=== PATIENT | male | born 1980 | race Two or more races ===

== ENCOUNTER 2016-04-01 21:54 | Emergency (ER) | payer MEDICAID, OTHER ==
[~2016-04-01] VITALS: Ht 177.8 cm; Wt 127.0 kg
[2016-04-01 22:13] VITALS: BP 130/92
== END 2016-04-02 01:42 | disposition left against medical advice (07) ==
LOC: ER 22:18
DX: R10.9 Unspecified abdominal pain (principal); Z53.21 Procedure and treatment not carried out due to patient leaving prior to being seen by health care provider

== ENCOUNTER 2016-04-06 12:23 | Emergency (ER) | payer MEDICAID ==
[~2016-04-06] VITALS: Ht 170.2 cm; Wt 127.0 kg
[2016-04-06 12:55] VITALS: BP 137/87
== END 2016-04-06 13:15 | disposition home or self-care (01) ==
LOC: ER 12:23
DX: T88.7XXA Unspecified adverse effect of drug or medicament, initial encounter (principal); F52.0 Hypoactive sexual desire disorder; F31.9 Bipolar disorder, unspecified; F20.9 Schizophrenia, unspecified; F41.9 Anxiety disorder, unspecified; X58.XXXA Exposure to other specified factors, initial encounter; Y93.89 Activity, other specified; Y99.8 Other external cause status; Y92.89 Other specified places as the place of occurrence of the external cause

== ENCOUNTER 2017-02-20 20:08 | Emergency (ER) | payer MEDICAID ==
[~2017-02-20] VITALS: Ht 172.7 cm; Wt 139.7 kg
[2017-02-20 20:26] VITALS: BP 146/86
[2017-02-20 21:04] LABS: Basophils # (auto) 0.1 uL; Eosinophils # (auto) 0.1 uL; Eosinophils % (auto) 0.7 % (0.0-7.0); Hematocrit 44.5 % (41.0-53.0); Hemoglobin 14.9 g/dL (13.5-17.5); Lymphocytes # (auto) 3.5 uL; Lymphocytes % (auto) 27.9 % (10.0-50.0); Mean Corpuscular Hemoglobin 27.8 pg (28.0-32.0); Mean Corpuscular Hgb Conc. 33.5 g/dL (32.0-36.0); Mean Corpuscular Volume 83.1 fL (80.0-100.0); Mean Platelet Volume 7.2 fL (6.9-10.8); Monocytes # (auto) 1.2 uL; Monocytes % (auto) 9.4 % (0.0-12.0); Neutrophils # (auto) 7.6 uL; Nucleated Red Blood Cells % 0.1 %; Platelet Count (auto) 354 10^3/uL (140-450); Red Cell Distribution Width 14.2 % (11.8-14.3); White Blood Cell 12.4 10^3/uL (4.4-10.8)
[2017-02-20 21:38] LABS: Albumin 3.8 g/dL (3.4-5.0); Alkaline Phosphatase 88 U/L (45-117); Anion Gap 6 (5-15); Aspartate Aminotransferase 45 U/L (15-37); BUN/Creatinine Ratio 18.8; Bilirubin, Total 0.5 mg/dL (0.2-1.0); Blood Urea Nitrogen 18 mg/dL (7-18); Calcium 8.9 mg/dL (8.5-10.1); Carbon Dioxide 28 mmol/L (21-32); Chloride 103 mmol/L (98-107); GFR African American 113 mL/min; GFR Non-African American 94 mL/min; Glucose 101 mg/dL (74-106); Magnesium 2.2 mg/dL (1.6-2.6); Potassium 3.5 mmol/L (3.5-5.1); Sodium 137 mmol/L (136-145); Total Protein 8.6 g/dL (6.4-8.2)
== END 2017-02-20 23:35 | disposition left against medical advice (07) ==
LOC: ER 20:08
DX: R42 Dizziness and giddiness (principal); Z53.21 Procedure and treatment not carried out due to patient leaving prior to being seen by health care provider
CPT/HCPCS: 36415; 80053; 83735; 84484; 85025; 93005

== ENCOUNTER → 2019-05-25 | Emergency (ER) | payer MEDICAID ==
[~2019-05-25] VITALS: Ht 172.7 cm; Wt 131.5 kg
[~2019-05-25] MED LIST: LORazepam 2MG/ML-1ML VIAL IV ONE; SODIUM CHLORIDE 0.9% 1,000 ML IV ONE
[2019-05-25 15:00] VITALS: BP 121/67
[2019-05-25 15:05] LABS: Basophils # (auto) 0.1 10 ^3/uL (0-0.2); Eosinophils # (auto) 0.2 10 ^3/uL (0-0.8); Eosinophils % (auto) 1.6 % (0.0-7.0); Monocytes # (auto) 1.1 10 ^3/uL (0-1.3)
[2019-05-25 15:07] LABS: Basophils % (auto) 0.8 % (0.0-2.0); Hemoglobin 13.1 g/dL (13.5-17.5); Lymphocytes % (auto) 19.6 % (10.0-50.0); Mean Corpuscular Hemoglobin 26.5 pg (28.0-32.0); Mean Corpuscular Hgb Conc. 33.6 g/dL (32.0-36.0); Mean Corpuscular Volume 78.7 fL (80.0-100.0); Monocytes % (auto) 11.4 % (0.0-12.0); Neutrophils # (auto) 6.7 10 ^3/uL (1.6-8.6); Neutrophils % (auto) 66.6 % (37.0-80.0); Platelet Count (auto) 369 10^3/uL (140-450); Red Blood Cells 4.96 10^6/uL (4.5-5.90); Red Cell Distribution Width 14.9 % (11.8-14.3); White Blood Cell 10.1 10^3/uL (4.4-10.8)
[2019-05-25 15:18] LABS: Albumin 3.4 g/dL (3.4-5.0); BUN/Creatinine Ratio 14.1; Calcium 8.4 mg/dL (8.5-10.1); Potassium 3.8 mmol/L (3.5-5.1)
[2019-05-25 15:21] LABS: Bilirubin, Total 0.3 mg/dL (0.2-1.0); Total Protein 7.5 g/dL (6.4-8.2)
[2019-05-25 15:39] LABS: Urine Bacteria NONE SEEN /hpf (None Seen); Urine Blood Negative /uL (Negative); Urine Mucus FEW (None Seen); Urine Specific Gravity 1.006 (1.001-1.035); Urine WBC <1 /hpf (0 - 3)
== END | disposition home or self-care (01) ==
LOC: EDUNIT# 13:46 → ER 13:57 → EDBD 13:57
DX: I95.9 Hypotension, unspecified (principal); E86.0 Dehydration
CPT/HCPCS: 36415; 80053; 81001; 85025; 93005; 96360; 99284; J7030

== ENCOUNTER → 2019-06-09 | Emergency (ER) | payer MEDICAID ==
[~2019-06-09] VITALS: Ht 172.7 cm; Wt 7.9 kg
[~2019-06-09] MED LIST changes: -LORazepam 2MG/ML-1ML VIAL IV ONE; +ONDANSETRON HCL 4 MG/2 ML VIAL IV ONE
[2019-06-09 03:07] LABS: Basophils # (auto) 0.1 10 ^3/uL (0-0.2); Eosinophils # (auto) 0 10 ^3/uL (0-0.8); Hemoglobin 13.1 g/dL (13.5-17.5); Monocytes # (auto) 0.9 10 ^3/uL (0-1.3); Red Cell Distribution Width 15.4 % (11.8-14.3)
[2019-06-09 03:08] LABS: Basophils % (auto) 0.5 % (0.0-2.0); Eosinophils % (auto) 0.3 % (0.0-7.0); Hematocrit 40.9 % (41.0-53.0); Lymphocytes # (auto) 1.9 10 ^3/uL (0.4-5.4); Lymphocytes % (auto) 14.8 % (10.0-50.0); Mean Corpuscular Hemoglobin 25.4 pg (28.0-32.0); Mean Corpuscular Hgb Conc. 32.1 g/dL (32.0-36.0); Mean Corpuscular Volume 79.1 fL (80.0-100.0); Monocytes % (auto) 7.4 % (0.0-12.0); Neutrophils # (auto) 9.7 10 ^3/uL (1.6-8.6); Nucleated Red Blood Cells % 0.1 %; Platelet Count (auto) 452 10^3/uL (140-450); Red Blood Cells 5.16 10^6/uL (4.5-5.90); White Blood Cell 12.7 10^3/uL (4.4-10.8)
[2019-06-09 03:22] LABS: Urine Bacteria NONE SEEN /hpf (None Seen); Urine Blood Negative /uL (Negative); Urine Hyaline Cast MANY /lpf (0 - 2); Urine Mucus FEW (None Seen); Urine Specific Gravity 1.025 (1.001-1.035); Urine WBC 2 /hpf (0 - 3)
[2019-06-09 03:24] LABS: Albumin 3.9 g/dL (3.4-5.0); Calcium 9.3 mg/dL (8.5-10.1); Potassium 3.5 mmol/L (3.5-5.1)
[2019-06-09 03:26] LABS: BUN/Creatinine Ratio 17.5
[2019-06-09 03:29] LABS: Bilirubin, Total 0.6 mg/dL (0.2-1.0); Total Protein 8.8 g/dL (6.4-8.2)
[2019-06-09 03:34] LABS: Amphetamine Screen, Urine NEGATIVE (NEGATIVE); Barbiturate Scree,Urine NEGATIVE (NEGATIVE); Benzodiazephine Screen, Urine NEGATIVE (NEGATIVE); Cannabinoid Screen, Urine NEGATIVE (NEGATIVE); Cocaine Screen, Urine NEGATIVE (NEGATIVE); Opiate Scree,Urine NEGATIVE (NEGATIVE); Phencyclidine Screen, Urine NEGATIVE (NEGATIVE)
[2019-06-09 06:00] VITALS: BP 112/74
== END | disposition home or self-care (01) ==
LOC: EDUNIT# 01:51 → EDBD 01:59 → ER 02:01
DX: K29.00 Acute gastritis without bleeding (principal)
CPT/HCPCS: 36415; 80053; 80307; 81001; 85025; 96361; 96374; 99283; J2405; J7030

== ENCOUNTER 2019-12-02 23:37 | Emergency (ER) | payer MEDICAID ==
[~2019-12-02] VITALS: Ht 170.2 cm; Wt 99.8 kg
[2019-12-03 00:22] VITALS: BP 130/80
== END 2019-12-03 00:34 | disposition left against medical advice (07) ==
LOC: EDBD 23:37 → ER 23:38
DX: F41.9 Anxiety disorder, unspecified (principal); Z53.21 Procedure and treatment not carried out due to patient leaving prior to being seen by health care provider